=== PATIENT | male | born 1985 | race African-American/Black ===

== ENCOUNTER 2017-07-05 00:10 | Emergency (ER) | payer BC ==
[2017-07-05 01:33] LABS: BASOPHILS 0.4 % (0-2); HEMATOCRIT 42.7 % (42.0-54.0); HEMOGLOBIN 13.5 g/dL (13.5-17.5); LYMPHOCYTES 47.4 % (15-50); MCH 22.9 pg (26.0-34.0); MCHC 31.6 g/dL (31.0-37.0); MCV 72.4 fL (80.0-100.0); MEAN PLATELET VOLUME 9.4 fL (7.4-10.4); MONOCYTES 11.2 % (2-11); PLATELET COUNT 280 10x3/uL (130-400); RDW 13.7 % (11.5-14.5); WBC 5.3 10x3/uL (4.8-10.8)
[2017-07-05 01:38] LABS: INR 1.03 (0.85-1.17); PROTIME 13.1 SECONDS (11.6-15.0)
[2017-07-05 01:39] LABS: APTT 29.9 SECONDS (22.8-39.4)
[2017-07-05 01:40] LABS: D-DIMER-QUANTITATIVE < 0.27 ug/mLFEU (0.20-0.54)
[2017-07-05 01:43] LABS: ALBUMIN 3.8 g/dL (3.4-5.0); ALKALINE PHOSPHATASE 47 U/L (46-116); ALT (SGPT) 28 U/L (10-68); BILIRUBIN - TOTAL 0.31 mg/dL (0.2-1.3); CALC OSMOLALITY 280 mosm/kg (275-300); CALCIUM 8.9 mg/dL (8.5-10.1); CARBON DIOXIDE 34.5 mmol/L (21.0-32.0); CHLORIDE - SERUM 103 mmol/L (98-107); CREATININE - SERUM 1.2 mg/dL (0.6-1.3); GLUCOSE 83 mg/dL (74-106); POTASSIUM - SERUM 4.7 mmol/L (3.5-5.1); SODIUM 141 mmol/L (136-145); UREA NITROGEN 14 mg/dL (7-18); eGFR NON AFRICAN AMERICAN 75 mL/min (90-120)
[2017-07-05 02:03] LABS: CKMB 1.4 U/L (0.0-3.6); CREATINE KINASE 109 UL (21-232); PRO BNP 11 pg/mL (0-125); TROPONIN-I < 0.017 ng/mL (0.000-0.060)
== END 2017-07-05 02:39 | disposition home or self-care (01) ==
LOC: D.ER 00:10
PROVIDERS: Family Medicine
DX: G51.0 Bell's palsy (principal)

== ENCOUNTER 2018-12-10 18:26 | Emergency (ER) | payer MEDICAID ==
[~2018-12-10] VITALS: Ht 175.3 cm; Wt 69.1 kg
[2018-12-10 18:29] VITALS: Ht 175.3 cm; Wt 69.1 kg
[2018-12-10] MEDS ORDERED: PENICILLIN V P500 MG PO (19:15)
[2018-12-10 20:01] VITALS: BP 131/77
== END 2018-12-10 19:45 | disposition home or self-care (01) ==
LOC: D.ER 18:26
DX: K08.89 Other specified disorders of teeth and supporting structures (principal)